=== PATIENT | female | born 1965 | race Two or more races ===

== ENCOUNTER 2025-07-31 08:09 | Emergency (ER) | payer BC ==
[~2025-07-31] VITALS: Ht 152.4 cm; Wt 63.5 kg
[2025-07-31] MEDS ORDERED: IBUPROFEN 600 MG TABLET ONE (08:32)
[2025-07-31] MEDS: IBUPROFEN 600 MG TABLET PO ONE (08:40)
[2025-07-31 09:47] VITALS: BP 147/100; TEMP 98.5; O2SAT 98
== END 2025-07-31 09:47 | disposition home or self-care (01) ==
LOC: ER 08:19
DX: S13.4XXA Sprain of ligaments of cervical spine, initial encounter (principal); M54.6 Pain in thoracic spine; Z85.72 Personal history of non-Hodgkin lymphomas; Z87.39 Personal history of other diseases of the musculoskeletal system and connective tissue; V43.62XA Car passenger injured in collision with other type car in traffic accident, initial encounter; Y93.89 Activity, other specified; Y92.488 Other paved roadways as the place of occurrence of the external cause; Y99.8 Other external cause status